=== PATIENT | male | born 1990 | race Caucasian/White ===

== ENCOUNTER 2016-11-15 01:37 | Emergency (ER) | payer MEDICAID, OTHER ==
[~2016-11-15] VITALS: Ht 185.4 cm; Wt 103.4 kg
--- NOTE | 2016-11-15 05:00 | NUR ---
Patient given written and verbal discharge instructions. Patient verbalizes understanding of instructions. Patient is ambulatory with steady gait. Refuses offer of senior care placement. Patient given list of available shelters in surrounding area.
== END 2016-11-15 05:02 | disposition home or self-care (01) ==
LOC: ER 01:41
DX: F10.20 Alcohol dependence, uncomplicated (principal); F31.9 Bipolar disorder, unspecified; R51 Headache; Z86.19 Personal history of other infectious and parasitic diseases
CPT/HCPCS: 70450; 72125; 99284; A4663